=== PATIENT | male | born 2000 | race Caucasian/White ===

== ENCOUNTER 2018-09-21 20:04 | Emergency (ER) | payer OTHER ==
[2018-09-21] MEDS ORDERED: KETOROLAC 30 MG INJ IV (21:53)
[2018-09-21] MEDS: KETOROLAC 15 MG INJ IV (22:19)
[2018-09-21] MEDS: METOCLOPRAMIDE 10 MG INJ IV (22:19)
[2018-09-21] MEDS: SOD CHLORIDE 0.9% 1,000 ML IV (22:19)
== END 2018-09-21 23:54 | disposition home or self-care (01) ==
LOC: FTE 20:04
DX: R51 Headache (principal); F17.210 Nicotine dependence, cigarettes, uncomplicated
CPT/HCPCS: 96374; 96375; 99284-25